=== PATIENT | female | born 1950 | race Hispanic/Latino ===

== ENCOUNTER 2017-11-05 04:48 | Emergency (ER) | payer MEDICARE ==
[~2017-11-05 04:48] MED LIST: ALBU8.5H8 IH; AMLO5TAB2 PO; ATOR10 PO; CARV25TA PO; DULO60CA63 PO; INSU100I21 SQ; INSU100I3 SQ; LEVO100T12 PO; LORA1TAB3 PO; LOSA1TAB54 PO; METF10004 PO; MIRA25TA PO; NITR0.4T SL; PRAS10TA6 PO; TRAZ-144 PO; VICTOZA SQ
[2017-11-05] MEDS ORDERED: IPRATROPIUM/ALBUTEROL SULFATE 3 ML SOLUTION IH ONE (04:56)
[2017-11-05 05:16] LABS: BASOPHILS % (AUTO) 0.8 % (0.0-5.0); EOSINOPHILS % (AUTO) 1.9 % (0.0-8.0); HEMATOCRIT 42.4 % (36-48); LYMPHOCYTES % (AUTO) 32.6 % (21.0-51.0); MEAN CORPUSCULAR HEMOGLOBIN 27.5 pg (27.0-33.0); MEAN CORPUSCULAR HGB CONC 32.6 g/dL (32.0-36.0); MEAN CORPUSCULAR VOLUME 84.1 fL (79-99); MONOCYTES % (AUTO) 14.2 % (3.0-13.0); NEUTROPHILS % (AUTO) 50.5 % (40.0-77.0); NUCLEATED RED BLOOD CELLS 0.1 % (0.0-0.19); PLATELET COUNT (AUTO) 161 K/uL (130-400); RED BLOOD CELL COUNT(AUTO) 5.05 MIL/uL (4.00-5.50); RED CELL DISTRIBUTION WIDTH 14.6 % (11.0-15.5); WHITE BLOOD COUNT (AUTO) 6.5 K/uL (4.8-10.8)
[2017-11-05] MEDS ORDERED: METHYLPREDNISOLONE SOD SUCC 40MG/ML 1ML ONE (05:25)
[2017-11-05 05:28] LABS: BILIRUBIN,TOTAL 0.4 mg/dL (0.2-1.0); CREATININE 0.8 mg/dL (0.5-1.5); POTASSIUM 4.1 mmol/L (3.5-5.1); TOTAL PROTEIN, SERUM 8.1 g/dL (6.0-8.3)
[2017-11-05 05:29] LABS: INR 1.09 (0.85-1.15); PARTIAL THROMBOPLASTIN TIME 25.9 SEC (26.3-35.5); PROTHROMBIN TIME 11.4 SEC (9.6-11.6)
[2017-11-05] MEDS ORDERED: ACETAMINOPHEN 325 MG TAB ONE (06:41)
[2017-11-05] MEDS ORDERED: OSELTAMIVIR PHOSPHATE 75 MG CAP ONE (07:18)
== END 2017-11-05 09:41 | disposition home or self-care (01) ==
LOC: EDH 04:48
DX: J10.1 Influenza due to other identified influenza virus with other respiratory manifestations (principal); J45.901 Unspecified asthma with (acute) exacerbation; R79.1 Abnormal coagulation profile; I10 Essential (primary) hypertension; E11.9 Type 2 diabetes mellitus without complications; E07.9 Disorder of thyroid, unspecified; E78.5 Hyperlipidemia, unspecified
CPT/HCPCS: 36415; 71010; 80053; 84484 ×2; 85025; 85610; 85730; 87804 ×2; 93005 ×2; 94640; 96361; 96374; 99285; J2920; J7030

== ENCOUNTER 2018-01-30 00:26 | Observation (INO) | payer MEDICARE ==
[~2018-01-30] VITALS: Ht 149.9 cm; Wt 111.5 kg
[2018-01-30] MEDS ORDERED: IPRATROPIUM/ALBUTEROL SULFATE 3 ML SOLUTION IH ONE ×4 (01:42→10:34)
[2018-01-30 02:23] LABS: BASOPHILS % (AUTO) 0.1 % (0.0-5.0); HEMATOCRIT 34.2 % (36-48); LYMPHOCYTES % (AUTO) 12.2 % (21.0-51.0); MEAN CORPUSCULAR HEMOGLOBIN 28.4 pg (27.0-33.0); MEAN CORPUSCULAR HGB CONC 33.4 g/dL (32.0-36.0); MONOCYTES % (AUTO) 2.7 % (3.0-13.0); NUCLEATED RED BLOOD CELLS 0.1 % (0.0-0.19); PLATELET COUNT (AUTO) 196 K/uL (130-400); RED BLOOD CELL COUNT(AUTO) 4.02 MIL/uL (4.00-5.50); RED CELL DISTRIBUTION WIDTH 14.8 % (11.0-15.5); WHITE BLOOD COUNT (AUTO) 8.7 K/uL (4.8-10.8)
[2018-01-30 02:46] LABS: POTASSIUM 4.5 mmol/L (3.5-5.1)
[2018-01-30 02:49] LABS: ALBUMIN 2.8 g/dL (3.5-5.0); BILIRUBIN,TOTAL 0.3 mg/dL (0.2-1.0)
[2018-01-30 03:05] LABS: CREATINE KINASE MB 2.1 ng/mL (0.5-3.6); CREATINE KINASE, TOTAL 165 U/L (21-232); MYOGLOBIN 47 ng/mL (10-92); TROPONIN I < 0.04 ng/mL (0.00-0.06)
[2018-01-30 03:54] LABS: ABG BASE EXCESS -0.9 mmol/L (-2.0-3.0); ABG HCO3 23.7 mmol/L (21.0-28.0); ABG OXYGEN SATURATION 94.5 % (95.0-99.0); ABG PCO2 39 mmHg (32-45)
[2018-01-30] MEDS ORDERED: METHYLPREDNISOLONE SOD SUCC 125MG/2ML VIAL ONE (04:55)
[2018-01-30 04:56] LABS: BASOPHILS % (AUTO) 0.1 % (0.0-5.0); HEMATOCRIT 35.3 % (36-48); LYMPHOCYTES % (AUTO) 9.8 % (21.0-51.0); MEAN CORPUSCULAR HEMOGLOBIN 28.3 pg (27.0-33.0); MEAN CORPUSCULAR HGB CONC 33.1 g/dL (32.0-36.0); MEAN CORPUSCULAR VOLUME 85.5 fL (79-99); MONOCYTES % (AUTO) 2.6 % (3.0-13.0); NEUTROPHILS % (AUTO) 87.5 % (40.0-77.0); PLATELET COUNT (AUTO) 209 K/uL (130-400); RED BLOOD CELL COUNT(AUTO) 4.12 MIL/uL (4.00-5.50); RED CELL DISTRIBUTION WIDTH 14.8 % (11.0-15.5); WHITE BLOOD COUNT (AUTO) 8.9 K/uL (4.8-10.8)
[2018-01-30] MEDS ORDERED: LEVOFLOXACIN 500 MG/D5W 100 ML 100 ML ONE (04:56)
[2018-01-30] MEDS: METHYLPREDNISOLONE SOD SUCC 125MG/2ML VIAL IVP SCH ×3 (05:00→21:12)
[2018-01-30] MEDS ORDERED: LEVOFLOXACIN 500 MG/D5W 100 ML 100 ML IV SCH (05:00)
[2018-01-30 05:08] LABS: ALBUMIN 2.8 g/dL (3.5-5.0); BILIRUBIN,TOTAL 0.3 mg/dL (0.2-1.0); POTASSIUM 4.5 mmol/L (3.5-5.1); TOTAL PROTEIN, SERUM 8.1 g/dL (6.0-8.3)
[2018-01-30] MEDS ORDERED: ALBUTEROL SULFATE 0.083% 2.5 MG/3 ML INH IH ONE (10:36)
[2018-01-30] MEDS: ALBUTEROL SULFATE 0.083% 2.5 MG/3 ML INH IH PRN ×2 (10:38→16:00)
[2018-01-30] MEDS: ALBUTEROL SULFATE 0.083% 2.5 MG/3 ML INH IH SCH ×2 (12:53→19:28)
[2018-01-30 13:06] VITALS: BP 193/63
[2018-01-30] MEDS ORDERED: GABA-531 PO (14:51)
[2018-01-30] MEDS ORDERED: PIOG45TA17 PO (14:51)
[2018-01-30] MEDS ORDERED: ESCI10TA54 PO (14:51)
[2018-01-30] MEDS ORDERED: AMOX-429 PO (14:51)
[2018-01-30] MEDS ORDERED: CODE10LI PO (14:51)
[2018-01-30] MEDS ORDERED: QUET50TA55 PO (14:51)
[2018-01-30] MEDS ORDERED: BUDE10.2 IH (14:51)
[2018-01-30] MEDS ORDERED: FLUT1AER IH (14:51)
[2018-01-30] MEDS ORDERED: PRED20TA3 PO (14:51)
[2018-01-30] MEDS ORDERED: BACL10TA PO (14:51)
[2018-01-30] MEDS ORDERED: OLOP2.5D5 OP (14:51)
[2018-01-30] MEDS ORDERED: FLUTICASONE/VILANTEROL 1 EACH AER.POW.BA IH PRN (15:30)
[2018-01-30] MEDS ORDERED: NITROGLYCERIN 0.4 MG SL TAB SL SCH (15:30)
[2018-01-30] MEDS: METFORMIN HCL 500 MG TABLET PO SCH (16:11)
[2018-01-30 16:24] VITALS: BP 164/67
[2018-01-30] MEDS ORDERED: INSULIN HUMULIN R 100 UNIT/ML 3ML SQ SCH (16:30)
[2018-01-30] MEDS ORDERED: GABAPENTIN 300 MG CAPSULE ONE (19:27)
[2018-01-30] MEDS ORDERED: CARVEDILOL 25 MG TABLET PO ONE (19:27)
[2018-01-30] MEDS ORDERED: ATORVASTATIN CALCIUM 20 MG TABLET ONE (19:28)
[2018-01-30] MEDS: BUDESONIDE 0.5 MG/2 ML INH IH SCH (19:28)
[2018-01-30 19:53] VITALS: BP 163/75
[2018-01-30] MEDS: GABAPENTIN 300 MG CAPSULE PO SCH (21:12)
[2018-01-30] MEDS: BACLOFEN 10 MG TABLET PO SCH (21:12)
[2018-01-30] MEDS: ATORVASTATIN CALCIUM 20 MG TABLET PO SCH (21:12)
[2018-01-30] MEDS: CARVEDILOL 25 MG TABLET PO SCH (21:13)
[2018-01-30] MEDS: INSULIN HUMULIN R 100 UNIT/ML 3ML SQ SCH (21:34)
[2018-01-31] MEDS: ALBUTEROL SULFATE 0.083% 2.5 MG/3 ML INH IH SCH ×5 (00:32→23:11)
[2018-01-31 00:39] VITALS: BP 120/52
[2018-01-31] MEDS: METHYLPREDNISOLONE SOD SUCC 125MG/2ML VIAL IVP SCH ×3 (03:40→20:22)
[2018-01-31] MEDS: LEVOFLOXACIN 500 MG/D5W 100 ML 100 ML IV SCH (03:40)
[2018-01-31] MEDS: LEVOTHYROXINE 100 MCG TABLET PO SCH (03:42)
[2018-01-31 03:56] VITALS: BP 140/67
[2018-01-31] MEDS ORDERED: LEVOFLOXACIN 500 MG/D5W 100 ML 100 ML ONE (04:03)
[2018-01-31] MEDS ORDERED: LEVOTHYROXINE 100 MCG TABLET ONE (04:41)
[2018-01-31] MEDS: BUDESONIDE 0.5 MG/2 ML INH IH SCH ×2 (06:06→19:47)
[2018-01-31] MEDS: INSULIN HUMULIN R 100 UNIT/ML 3ML SQ SCH ×4 (06:28→20:48)
[2018-01-31] MEDS ORDERED: BUDESONIDE 0.5 MG/2 ML INH IH PRN (06:30)
[2018-01-31] MEDS ORDERED: ALBUTEROL SULFATE 0.083% 2.5 MG/3 ML INH IH PRN (06:30)
[2018-01-31 07:30] VITALS: BP 125/63
[2018-01-31] MEDS ORDERED: OLOPATADINE HCL OP SCH (09:00)
[2018-01-31] MEDS: LOSARTAN/HYDROCHLOROTHIAZIDE 50-12.5MG TABLET PO SCH (09:01)
[2018-01-31] MEDS: AMLODIPINE BESYLATE 5 MG TAB PO SCH (09:02)
[2018-01-31] MEDS: GABAPENTIN 300 MG CAPSULE PO SCH ×3 (09:02→20:22)
[2018-01-31] MEDS: PIOGLITAZONE HCL 45 MG TAB PO SCH (09:02)
[2018-01-31] MEDS: CITALOPRAM 20 MG TABLET PO SCH (09:02)
[2018-01-31] MEDS: PRASUGREL HCL 10 MG TABLET PO SCH (09:02)
[2018-01-31] MEDS: CARVEDILOL 25 MG TABLET PO SCH ×2 (09:03→20:22)
[2018-01-31] MEDS: QUETIAPINE FUMARATE 25 MG TAB PO SCH (09:03)
[2018-01-31] MEDS: METFORMIN HCL 500 MG TABLET PO SCH ×2 (09:03→16:23)
[2018-01-31] MEDS: ALBUTEROL SULFATE 0.083% 2.5 MG/3 ML INH IH PRN (10:38)
[2018-01-31 11:00] VITALS: BP 121/56
[2018-01-31 16:00] VITALS: BP 109/53
[2018-01-31 20:06] VITALS: BP 126/60
[2018-01-31] MEDS: BACLOFEN 10 MG TABLET PO SCH (20:21)
[2018-01-31] MEDS: ATORVASTATIN CALCIUM 20 MG TABLET PO SCH (20:22)
[2018-02-01] VITALS: BP 108/55
[2018-02-01] MEDS: METHYLPREDNISOLONE SOD SUCC 125MG/2ML VIAL IVP SCH ×2 (04:45→13:38)
[2018-02-01] MEDS: LEVOFLOXACIN 500 MG/D5W 100 ML 100 ML IV SCH (04:45)
[2018-02-01 04:51] VITALS: BP 114/51
[2018-02-01] MEDS: ALBUTEROL SULFATE 0.083% 2.5 MG/3 ML INH IH SCH ×2 (05:53→11:01)
[2018-02-01] MEDS: BUDESONIDE 0.5 MG/2 ML INH IH SCH (06:04)
[2018-02-01] MEDS: INSULIN HUMULIN R 100 UNIT/ML 3ML SQ SCH ×2 (06:15→11:51)
[2018-02-01] MEDS: LEVOTHYROXINE 100 MCG TABLET PO SCH (06:18)
[2018-02-01 07:30] VITALS: BP 138/53
[2018-02-01] MEDS: PIOGLITAZONE HCL 45 MG TAB PO SCH (09:30)
[2018-02-01] MEDS: QUETIAPINE FUMARATE 25 MG TAB PO SCH (09:30)
[2018-02-01] MEDS: PRASUGREL HCL 10 MG TABLET PO SCH (09:30)
[2018-02-01] MEDS: CITALOPRAM 20 MG TABLET PO SCH (09:30)
[2018-02-01] MEDS: CARVEDILOL 25 MG TABLET PO SCH (09:30)
[2018-02-01] MEDS: METFORMIN HCL 500 MG TABLET PO SCH (09:31)
[2018-02-01] MEDS: GABAPENTIN 300 MG CAPSULE PO SCH ×2 (09:31→13:38)
[2018-02-01] MEDS: AMLODIPINE BESYLATE 5 MG TAB PO SCH (09:31)
[2018-02-01] MEDS: LOSARTAN/HYDROCHLOROTHIAZIDE 50-12.5MG TABLET PO SCH (09:31)
[2018-02-01 11:00] VITALS: BP 147/65
[2018-02-01] MEDS ORDERED: ALBU0.63 IH (11:40)
[2018-02-01] MEDS ORDERED: PRED20TA3 PO (11:40)
== END 2018-02-01 14:05 | disposition home or self-care (01) ==
LOC: EDH 00:26 → EDHIP 03:32 → 4AH 12:30
PROVIDERS: ADMIT Family Medicine; ATTEND Family Medicine
DX: J45.909 Unspecified asthma, uncomplicated (principal); E11.9 Type 2 diabetes mellitus without complications; E78.5 Hyperlipidemia, unspecified; I10 Essential (primary) hypertension; J45.902 Unspecified asthma with status asthmaticus; J96.90 Respiratory failure, unspecified, unspecified whether with hypoxia or hypercapnia; E03.9 Hypothyroidism, unspecified; I25.10 Atherosclerotic heart disease of native coronary artery without angina pectoris; Z95.5 Presence of coronary angioplasty implant and graft
CPT/HCPCS: 36415; 36600; 71046; 80053 ×2; 82550; 82553; 82803; 82947 ×2; 82948 ×8; 83874; 84484; 85025 ×2; 87040 ×2; 93005; 94640 ×19; 94664; 96365; 96366; 96372 ×3; 99291; G0378 ×59; J1815 ×6; J1956 ×3; J2930 ×8

== ENCOUNTER → 2018-02-08 | Outpatient (CLI) | payer MEDICARE ==
[~2018-02-08] MED LIST changes: +ALBU0.63 IH; -ALBU8.5H8 IH; +AMOX-429 PO; +BACL10TA PO; +BUDE10.2 IH; +CODE10LI PO; -DULO60CA63 PO; +ESCI10TA54 PO; +FLUT1AER IH; +GABA-531 PO; -INSU100I21 SQ; -LORA1TAB3 PO; -MIRA25TA PO; +OLOP2.5D5 OP; +PIOG45TA17 PO; +PRED20TA3 PO; +QUET50TA55 PO; -TRAZ-144 PO; -VICTOZA SQ
== END ==
LOC: OIH 09:55
PROVIDERS: ATTEND Family Medicine
DX: J45.909 Unspecified asthma, uncomplicated (principal)
CPT/HCPCS: 71046

== ENCOUNTER → 2018-04-12 | Outpatient (CLI) | payer MEDICARE ==
[~2018-04-12] MED LIST changes: -PIOG45TA17 PO; +PIOG45TA64 PO; +REGADENOSON 0.4 MG/5 ML PF SYG IVP SCH
== END | disposition home or self-care (01) ==
LOC: SHCH 10:00
PROVIDERS: ATTEND Internal Medicine Cardiovascular Disease
DX: I20.9 Angina pectoris, unspecified (principal)
CPT/HCPCS: 78452; 93017; 96374; A9500 ×2; J2785

== ENCOUNTER → 2018-08-05 | Outpatient (CLI) | payer MEDICARE ==
[~2018-08-05] MED LIST changes: -ALBU0.63 IH; +ALBU18HF7 IH; +AMLO10TA6 PO; -AMLO5TAB2 PO; -AMOX-429 PO; +ASPI-1181 PO; -CODE10LI PO; +INSU300I SQ; -METF10004 PO; +MONT10TA24 PO; -OLOP2.5D5 OP; -PRAS10TA6 PO; +PRAS10TA9 PO; -PRED20TA3 PO; -QUET50TA55 PO; -REGADENOSON 0.4 MG/5 ML PF SYG IVP SCH
== END | disposition home or self-care (01) ==
LOC: SHCH 08:13
PROVIDERS: ATTEND Internal Medicine Cardiovascular Disease
DX: I87.2 Venous insufficiency (chronic) (peripheral) (principal)
CPT/HCPCS: 93970

== ENCOUNTER 2019-05-09 15:12 | Inpatient (IN) | payer MEDICARE | END 2019-05-20 22:00 | disposition hospice, home (50) | LOC: EDH 15:12 → 4CH 05-10 01:07 → 3CH 05-12 19:25 → EDHIP 18:37 | DX: A41.9 Sepsis, unspecified organism (principal); R40.20 Unspecified coma; T81.30XA Disruption of wound, unspecified, initial encounter; J96.11 Chronic respiratory failure with hypoxia; G93.1 Anoxic brain damage, not elsewhere classified; R40.3 Persistent vegetative state; E87.2 Acidosis; L89.150 Pressure ulcer of sacral region, unstageable; R13.12 Dysphagia, oropharyngeal phase; E66.01 Morbid (severe) obesity due to excess calories ==